=== PATIENT | female | born 1980 | race Caucasian/White ===

== ENCOUNTER 2016-07-02 16:36 | Emergency (ER) ==
--- NOTE | 2016-07-02 18:12 | PROVIDER DOCUMENTATION ---
HPI-Rash/Wound/ReCheck - General Chief Complaint: Abscess Stated Complaint: "INFECTION" Time Seen by Provider: 07/02/16 18:05 Source: patient Allergies/Adverse Reactions: Allergies Allergy/AdvReac Type Severity Reaction Status Date / Time latex Allergy HIVES Verified 11/19/15 18:01 bee pollen AdvReac SWELLING Verified 11/19/15 18:01 Home Medications: Home Medication List Medication Instructions Recorded Confirmed Last Taken Type Acetaminophen with Codeine 1 each PO Q4H PRN PRN #12 tablet 02/24/16 Unknown Rx [Tylenol with Codeine #3] Ciprofloxacin HCl [Cipro] 500 mg PO BID #14 tablet 02/24/16 Unknown Rx Metronidazole [Flagyl] 500 mg PO BID #14 tablet 02/24/16 Unknown Rx Cephalexin [Keflex] 500 mg PO BID #14 capsule 07/02/16 Unknown Rx Sulfamethoxazole/Trimethoprim 1 each PO BID #14 tablet 07/02/16 Unknown Rx [Bactrim Ds Tablet] Tramadol [Ultram] 50 mg PO Q8HR #7 tablet 07/02/16 Unknown Rx - History of Present Illness-Dermatology Nature of Presenting Problem: 35 y/o WF presents to ED for knot on chest x 4 months, worse in last 2 days. Pt states recent dental procedure, finished amoxicillin on Monday. Dental procedure completed 1-2 days ago, in a row. States that lump is central sternum. States painful and has grown from pea size to grape sized in 48 hours. States was not painful prior to enlargement. Review of Systems - Adult - REVIEW OF SYSTEMS - ADULT Constitutional: reports: no symptoms reported. denies: chills, fever Eyes: reports: no symptoms reported. denies: blurred vision, double vision Ears, Nose, Mouth & Throat: reports: mouth/dental pain. denies: ear pain, nose pain, throat pain Cardiovascular: reports: no symptoms reported. denies: chest pain, palpitations Respiratory: reports: no symptoms reported. denies: dyspnea on exertion, shortness of breath Gastrointestinal: reports: no symptoms reported. denies: nausea, vomiting Genitourinary: reports: no symptoms reported. denies: dysuria, frequency Musculoskeletal: reports: no symptoms reported. denies: joint pain, joint swelling Integumentary: reports: see HPI, other. denies: nail changes, rash Neurological: reports: no symptoms reported. denies: numbness, paresthesia Psychiatric: reports: no symptoms reported Endocrine: reports: no symptoms reported. denies: cold intolerance, heat intolerance Hematologic/Lymphatic: reports: no symptoms reported. denies: easy bruising, prolonged bleeding Allergic/Immunologic: reports: no symptoms reported All Other Systems: Reviewed and Negative Past History - Adult - PAST MEDICAL HISTORY-ADULT Review of Records: reports: Nursing Assessment Review, Medications Reviewed Major Childhood Illnesses: reports: denies history Respiratory: reports: asthma Endocrine/Immune: reports: other (previous blood infection) - PRIOR SURGERIES/PROCEDURES Surgical/Procedure History: reports: recent surgery (19 teeth pulled) - IMMUNIZATION STATUS Childhood Immunizations: See Nurse Assessment Flu Vaccine: See Nurse Assessment - FAMILY HISTORY Family History: reviewed, not pertinent - SOCIAL HISTORY Smoking: cigarettes, less than 1 pack/day Provider spent 3-5 mins advising pt. on dangers of tobacco.: Discussed manners to quit use, and f/u contacts for add'l counseling. Alcohol Use Frequency: never Physical Exam-General - PHYSICAL EXAM-ADULT Initial Vital Signs Reviewed: Yes - CONSTITUTIONAL General Appearance: alert, mild distress - EYES Eyes: pink conjunctivae - HEAD, EARS, NOSE, MOUTH & THROAT HENMT: normocephalic/atraumatic - NECK Neck: normal inspection - RESPIRATORY Respiratory: lungs clear, normal breath sounds. negative: crackles, rales, rhonchi, stridor, wheezing - CARDIOVASCULAR Cardiovascular: regular rate, rhythm. negative: bradycardia, tachycardia - LYMPHATIC Lymphatic: no adenopathy - MUSCULOSKELETAL Extremity: normal gait DTR: ankle (L): 0 - SKIN Integumentary: normal color, normal turgor, warm/dry, other (3x4 cm area of induration with central fluctuance to lateral L aspect of inferior sternum.) - NEUROLOGIC Neurologic: negative: aphasia - PSYCHIATRIC Psych/Mental Status: normal mood/affect, normal thought content, normal thought process, oriented x 3 Progress - PLAN OF CARE/RESULTS Progress/Plan/Lab Results: Orders Category Date Time Status I&D [I and D Set up] DIRECTED Care 07/02/16 18:14 Active CephALEXIN [Keflex] Med 07/02/16 19:30 Discontinued 500 mg PO NOW ONE Hydrocodone/APAP 7.5 mg/325 mg [[place]-7.5] Med 07/02/16 19:30 Discontinued 1 each PO NOW ONE Lidocaine 1%/Epi 1:100,000 [Xylocaine 1%/Epi 1:100,000] Med 07/02/16 18:14 Discontinued 20 ml INJ NOW ONE Ondansetron Odt [Zofran Odt] Med 07/02/16 19:30 Discontinued 4 mg PO NOW ONE Sulfamethoxazole/Tmp D.s. [Septra Ds] Med 07/02/16 19:30 Discontinued 1 each PO NOW ONE Vital Signs Temp Pulse Resp BP Pulse Ox 07/02/16 19:44 98.2 F 81 20 155/87 94 L 07/02/16 16:45 98.4 F 96 H 18 164/100 100 latex Allergy (Verified 11/19/15 18:01) HIVES bee pollen Adverse Reaction (Verified 11/19/15 18:01) SWELLING Acetaminophen with Codeine [Tylenol with Codeine #3] 1 each PO Q4H PRN PRN #12 tablet 02/24/16 Ciprofloxacin HCl [Cipro] 500 mg PO BID #14 tablet 02/24/16 Metronidazole [Flagyl] 500 mg PO BID #14 tablet 02/24/16 Cephalexin [Keflex] 500 mg PO BID #14 capsule 07/02/16 Sulfamethoxazole/Trimethoprim [Bactrim Ds Tablet] 1 each PO BID #14 tablet 07/02 Tramadol [Ultram] 50 mg PO Q8HR #7 tablet 07/02/16 NICOTINE DEPENDENCE, CIGARETTES, UNCOMPLICATED (07/02/16) OTHER SPECIFIED DISORDERS OF TEETH AND SUPPORTING STRUCTURES (07/02/16) CUTANEOUS ABSCESS OF CHEST WALL (07/02/16) OTHER CHEST PAIN (07/02/16) LOCALIZED SWELLING, MASS AND LUMP, TRUNK (07/02/16) TOBACCO ABUSE COUNSELING (07/02/16) OTHER SPECIFIED POSTPROCEDURAL STATES (07/02/16) Discussed wound care, return precautions, and return for recheck in 3-4 days. Procedures - INCISION & DRAINAGE Site: inferior sternum Abscess Type: Cyst, Subcutaneous Prepped with: Kit Utilized, Betadine, Sterile Drapes Applied Anesthetic: 1%, Lidocaine w/ Epinephrine Volume of Anesthetic (ml's): 5 Blade Size: 11 Packing placed?: Yes Sterile Dressing Applied?: Yes Drainage: Large Amount, Purulent Procedure Comment: Pt tolerated well Departure - Departure Time of Disposition Order: 19:27 DIAGNOSIS: Abscess Disposition: HOME 01 Certified Medical Emergency: Emergent Condition: Stable Additional Instructions: Return in 3 days for wound check and packing removal. Take medications as directed. ED Follow Up Instructions: You have been treated by a care provider in the Emergency Department. These instructions are being provided to you so you can have an understanding of how to care for yourself upon discharge. Upon discharge from the Emergency Department, you are responsible for making arrangements for follow-up care by a physician of your choice. Take all prescribed medications as directed. Return to the Emergency Department immediately for any new or worsening symptoms. You may call the Physician Referral phone number at [phone] to obtain a list of Physicians who are taking new patients. Prescriptions: Sulfamethoxazole/Trimethoprim [Bactrim Ds Tablet] 1 each PO BID #14 tablet Cephalexin [Keflex] 500 mg PO BID #14 capsule Tramadol [Ultram] 50 mg PO Q8HR #7 tablet Referrals: None,PCP [Primary Care Provider] - Forms: Return to School/Parent Work Instructions: Abscess, Saxg-si-Mevi, Tramadol tablets, Cephalexin tablets or capsules, Sulfamethoxazole; Trimethoprim, SMX-TMP tablets Attestation - Physician/ ANDRA Attestation Patient care was provided by Advanced Practice Provider:: Yes Advanced Practice Provider:: Faiza Cisneros Advanced Practice Provider documentation review:: The Mid-level provider documentation, treatment plan and medical decision making was reviewed by the physician who agrees with all treatment and medical decision making by the MLP.
[2016-07-02] MEDS ORDERED: XYLOCAINE 1%/EPI 1:100,000 INJ ONE (18:14)
[2016-07-02] MEDS ORDERED: NORCO-7.5 PO ONE (19:30)
[2016-07-02] MEDS ORDERED: ZOFRAN ODT PO ONE (19:30)
[2016-07-02] MEDS ORDERED: SEPTRA DS PO ONE (19:30)
[2016-07-02] MEDS ORDERED: KEFLEX PO ONE (19:30)
[2016-07-02 19:45] VITALS: BP 155/87
== END 2016-07-02 19:53 | disposition home or self-care (01) ==
LOC: P.ED 16:36
DX: L02.213 Cutaneous abscess of chest wall (principal); R22.2 Localized swelling, mass and lump, trunk; R07.89 Other chest pain; K08.89 Other specified disorders of teeth and supporting structures; F17.210 Nicotine dependence, cigarettes, uncomplicated; Z71.6 Tobacco abuse counseling; Z98.890 Other specified postprocedural states

== ENCOUNTER 2016-07-05 16:09 | Emergency (ER) ==
[2016-07-05 16:27] VITALS: BP 147/076
--- NOTE | 2016-07-05 18:05 | PROVIDER DOCUMENTATION ---
HPI-Rash/Wound/ReCheck - General Chief Complaint: Return/Recheck Stated Complaint: WOUND RECHECK Time Seen by Provider: 07/05/16 17:49 Source: patient Allergies/Adverse Reactions: Allergies Allergy/AdvReac Type Severity Reaction Status Date / Time latex Allergy HIVES Verified 07/05/16 16:27 bee pollen AdvReac SWELLING Verified 07/05/16 16:27 Home Medications: Home Medication List Medication Instructions Recorded Confirmed Last Taken Type Acetaminophen with Codeine 1 each PO Q4H PRN PRN #12 tablet 02/24/16 07/05/16 Unknown Rx [Tylenol with Codeine #3] Ciprofloxacin HCl [Cipro] 500 mg PO BID #14 tablet 02/24/16 07/05/16 Unknown Rx Metronidazole [Flagyl] 500 mg PO BID #14 tablet 02/24/16 07/05/16 Unknown Rx Cephalexin [Keflex] 500 mg PO BID #14 capsule 07/02/16 07/05/16 Unknown Rx Sulfamethoxazole/Trimethoprim 1 each PO BID #14 tablet 07/02/16 07/05/16 Unknown Rx [Bactrim Ds Tablet] Tramadol [Ultram] 50 mg PO Q8HR #7 tablet 07/02/16 07/05/16 Unknown Rx - History of Present Illness-Dermatology Nature of Presenting Problem: This pt presents today for abscess recheck. Site was lanced 3 days ago. It has healed very well. Location: reports: chest Onset/Duration: reports: 3 days ago Context/Associated Symptoms: reports: abscess - Recheck Treated days ago.: 3 Previous Treatment: I & D of abscess Antibiotics given: prescription Symptoms since procedure:: reports: no complaints Review of Systems - Adult - REVIEW OF SYSTEMS - ADULT Constitutional: reports: no symptoms reported. denies: chills, fever Eyes: reports: no symptoms reported. denies: discharge, dry eyes Ears, Nose, Mouth & Throat: reports: no symptoms reported. denies: ear discharge, ear pain Cardiovascular: reports: no symptoms reported. denies: chest pain, edema Respiratory: reports: no symptoms reported. denies: chronic cough, cough Gastrointestinal: reports: no symptoms reported. denies: abdominal pain, hematemesis Genitourinary: reports: no symptoms reported. denies: dysuria, discharge Musculoskeletal: reports: no symptoms reported. denies: bone pain, back pain Integumentary: reports: see HPI. denies: mole changes, nail changes Neurological: reports: no symptoms reported. denies: ataxia, dizziness/vertigo Psychiatric: reports: no symptoms reported. denies: anxiety, anti-depressant use Endocrine: reports: no symptoms reported Hematologic/Lymphatic: reports: no symptoms reported Allergic/Immunologic: reports: no symptoms reported All Other Systems: Reviewed and Negative Past History - Adult - PAST MEDICAL HISTORY-ADULT Review of Records: reports: Old Records Reviewed, Nursing Assessment Review, Medications Reviewed, Social history reviewed & non-contributory. Major Childhood Illnesses: reports: denies history Cardiovascular: reports: denies history Respiratory: reports: asthma Gastrointestinal: reports: denies history Obstetrical/Gynecological: reports: denies history Genitourinary: reports: denies history Musculoskeletal: reports: denies history Neurological: reports: denies history Endocrine/Immune: reports: other (previous blood infection) Other Conditions: reports: denies history - PRIOR SURGERIES/PROCEDURES Surgical/Procedure History: reports: recent surgery (19 teeth pulled) - IMMUNIZATION STATUS Childhood Immunizations: See Nurse Assessment Flu Vaccine: See Nurse Assessment - FAMILY HISTORY Family History: reviewed, not pertinent Physical Exam-General - PHYSICAL EXAM-ADULT Initial Vital Signs Reviewed: Yes - CONSTITUTIONAL General Appearance: appears well, alert, no apparent distress - EYES Eyes: PERRL/EOMI, pink conjunctivae - HEAD, EARS, NOSE, MOUTH & THROAT HENMT: normocephalic/atraumatic, moist mucous membranes, normal ENT inspection - NECK Neck: non-tender - RESPIRATORY Respiratory: chest non-tender, lungs clear, normal breath sounds - CARDIOVASCULAR Cardiovascular: normal peripheral pulses, regular rate, rhythm - CHEST (BREASTS) Chest/Breast: other (well healed abscess I&D) - SKIN Integumentary: normal turgor, warm/dry, other (see Chest Section above) - NEUROLOGIC Neurologic: grossly normal, no motor/sensory deficits Progress - PLAN OF CARE/RESULTS Progress/Plan/Lab Results: Vital Signs Temp Pulse Resp BP Pulse Ox 07/05/16 16:24 98.3 F 85 20 147/076 97 latex Allergy (Verified 07/05/16 16:27) HIVES bee pollen Adverse Reaction (Verified 07/05/16 16:27) SWELLING Acetaminophen with Codeine [Tylenol with Codeine #3] 1 each PO Q4H PRN PRN #12 tablet 02/24/16 Ciprofloxacin HCl [Cipro] 500 mg PO BID #14 tablet 02/24/16 Metronidazole [Flagyl] 500 mg PO BID #14 tablet 02/24/16 Cephalexin [Keflex] 500 mg PO BID #14 capsule 07/02/16 Sulfamethoxazole/Trimethoprim [Bactrim Ds Tablet] 1 each PO BID #14 tablet 07/02 Tramadol [Ultram] 50 mg PO Q8HR #7 tablet 07/02/16 Packing removed and area redressed. Departure - Departure Time of Disposition Order: 18:07 DIAGNOSIS: Encounter for recheck of abscess following incision and drainage Disposition: HOME 01 Certified Medical Emergency: Urgent Condition: Good Additional Instructions: Keep clean and dry. Follow up with your primary care provider. ED Follow Up Instructions: You have been treated by a care provider in the Emergency Department. These instructions are being provided to you so you can have an understanding of how to care for yourself upon discharge. Upon discharge from the Emergency Department, you are responsible for making arrangements for follow-up care by a physician of your choice. Take all prescribed medications as directed. Return to the Emergency Department immediately for any new or worsening symptoms. You may call the Physician Referral phone number at [phone] to obtain a list of Physicians who are taking new patients. Attestation - Physician/ ANDRA Attestation Patient care was provided by Advanced Practice Provider:: Yes Advanced Practice Provider:: Tramaine Westbrook Advanced Practice Provider documentation review:: The Mid-level provider documentation, treatment plan and medical decision making was reviewed by the physician who agrees with all treatment and medical decision making by the MLP.
== END 2016-07-05 18:36 | disposition home or self-care (01) ==
LOC: P.ED 16:09
DX: L02.213 Cutaneous abscess of chest wall (principal); Z98.890 Other specified postprocedural states
CPT/HCPCS: 99282